=== PATIENT | male | born 1980 | race Caucasian/White ===

== ENCOUNTER → 2017-12-07 | Outpatient (CLI) | payer BC, OTHER ==
[~2017-12-07] MED LIST: CIPR-255 PO; CIPR1TAB11 PO; CLS1 PO; FLM4 PO; FLUO20CA35 PO; GLYB5TAB8 PO; IBUP-1277 PO; JNV25 PO; LISI5TAB PO; METF1000 PO; METF1TAB85 PO; OXYC-90 PO
--- NOTE | 2017-12-07 12:58 | DIAGNOSTIC IMAGING REPORT ---
CHEST 2 VIEWS ROUTINE CLINICAL HISTORY: N20.0 [id number] preoperative evaluation COMPARISON STUDY: No previous studies for comparison. FINDINGS: The bones soft tissues and hemidiaphragms are normal. The cardiomediastinal silhouette is normal. The lungs are clear. The pulmonary vasculature is normal. IMPRESSION: Negative chest. The above report was generated using voice recognition software. It may contain grammatical, syntax or spelling errors. Electronically signed by: Abhinav Rosales M.D. 12/07/2017 12:57 PM Dictated Date/Time: 12/07/2017 12:56 PM
== END | disposition home or self-care (01) ==
LOC: C.RAD 12:39
PROVIDERS: ATTEND Urology
DX: N20.0 Calculus of kidney (principal); R31.0 Gross hematuria

== ENCOUNTER → 2017-12-11 | Outpatient (CLI) | payer BC, OTHER ==
[2017-12-11 13:08] LABS: HEMOGLOBIN A1C 10.5 % (4.5-5.6)
== END | disposition home or self-care (01) ==
LOC: C.LABBFT 08:08
PROVIDERS: ATTEND Nurse Practitioner
DX: R39.9 Unspecified symptoms and signs involving the genitourinary system (principal); E11.9 Type 2 diabetes mellitus without complications

== ENCOUNTER 2017-12-25 06:31 | Day surgery (SDC) | payer BC, OTHER ==
[2017-12-11 15:25] VITALS: BMI 43.0
[~2017-12-25] VITALS: Ht 177.8 cm; Wt 135.0 kg
[~2017-12-25 06:31] MED LIST changes: -CIPR-255 PO; +CIPROFLOXACIN / D5W 400 MG IV SCH; -IBUP-1277 PO; +LACTATED RINGER'S 1000ML 1,000 ML IV SCH; -METF1000 PO; -OXYC-90 PO
[2017-12-25 06:59] VITALS: BP 140/78; PULSE 70; TEMP 37; O2SAT 96; Ht 177.8 cm; Wt 135.0 kg
[2017-12-25] MEDS ORDERED: EpHEDrine SULFATE INJ 50 MG/ML AMP IV PRN (07:00)
[2017-12-25] MEDS ORDERED: ONDANSETRON INJ 2 MG/ML 2 ML VIAL IV PRN (07:00)
[2017-12-25] MEDS ORDERED: ATROPINE SULFATE 0.1 MG/ML 5ML SYR IV PRN (07:00)
[2017-12-25] MEDS ORDERED: FENTANYL CITRATE INJ 50 MCG/1 ML 2 ML VIAL IV PRN (07:00)
--- NOTE | 2017-12-25 07:21 | History & Physical Bridge Note ---
H&P Re-Evaluation Bridge Note: I have examined the patient, reviewed the History & Physical and in the interval since the performance of the History & Physical I have noted the following changes of clinical significance: No changes noted
--- NOTE | 2017-12-25 07:25 | Discharge Instructions ---
Discharge Instructions Date of Service Dec 25, 2017. Admission Reason for Admission: Gross Hematuria, Nephrolithiasis Discharge Discharge Diagnosis / Problem: Hematuria Discharge Goals Goal(s): Decrease discomfort, Improve function Activity Recommendations Activity Limitations: resume your previous activity Lifting Limitations: gradually increase as tolerated Exercise/Sports Limitations: gradually increase as tolerated . Instructions / Follow-Up Instructions / Follow-Up May have blood in urine. May have discomfort. Call if any fevers or issues. Current Hospital Diet Patient's current hospital diet: Discharge Diet Recommended Diet: Regular Diet Procedures Procedures Performed: Cystoscopy with retrogrades. Pending Studies Studies pending at discharge: no Laboratory Results Hemoglobin A1c Test 12/11/17 08:12 Range/Units Estimated Average Glucose 255 mg/dl Hemoglobin A1c 10.5 H 4.5-5.6 % Lipid Panel Test 12/11/17 08:12 Range/Units Triglycerides Level 278 H 0-150 mg/dl Cholesterol Level 112 0-200 mg/dl HDL Cholesterol 34 mg/dl Cholesterol/HDL Ratio 3.3 LDL Cholesterol, Calculated 22 mg/dl Medical Emergencies . Who to Call and When: Medical Emergencies: If at any time you feel your situation is an emergency, please call 911 immediately. . Non-Emergent Contact Non-Emergency issues call your: Primary Care Provider, Urologist Call Non-Emergent contact if: you have a fever, temperature is above 101, temperature is above 101.5, your pain is not controlled, your pain is worsening . . "Provider Documentation" section prepared by Ry Carmona. .
[2017-12-25] MEDS ORDERED: PHEN-775 PO (07:26)
[2017-12-25] MEDS ORDERED: CEPH-571 PO (07:26)
[2017-12-25] MEDS ORDERED: OXYC7.5T65 PO (07:26)
[2017-12-25] MEDS ORDERED: OXYCODONE/ACETAMINOPHEN 7.5-325 TAB PO PRN (07:30)
[2017-12-25] MEDS ORDERED: FENTANYL CITRATE INJ 50 MCG/1 ML 2 ML VIAL ONE (07:41)
[2017-12-25] MEDS ORDERED: MIDAZOLAM HCL 1 MG/ML 2ML VIAL ONE (07:41)
[2017-12-25] MEDS ORDERED: Cysto-Conray II 17.2% 250ML BOTTLE ONE (08:03)
--- NOTE | 2017-12-25 08:34 | [facility] Operative Report ---
Operative Report Operative Date Dec 25, 2017. Pre-Operative Diagnosis Hematuria, Dysuria Post-Operative Diagnosis Same Procedure(s) Performed Cystoscopy with bilateral retrograde pyelograms Surgeon Mathew Estimated Blood Loss Minimal Findings Hypervascularity with prostate enlargement. Specimens None Drains None Anesthesia Type MAC Complication(s) none Disposition Recovery Room / PACU Indications Hematuria and dysuria with worsening symptoms. Risks and benefits discussed. Description of Procedure Patient was consented and brought back to the operating room. Patient was placed under anesthesia in the supine position and moved to the dorsal lithotomy position. Patient was prepped and draped in the regular sterile fashion. A time out was completed. A 30degree Cystoscope was placed into the bladder and the entire bladder was examined. The UO's were identified. Each ureter was cannulized with a catheter and a retrograde pyelogram was completed. No obstructions or filling defects were noted. At this point, the bladder was emptied. The scope was removed. The patient was cleaned, aroused from anesthesia, and transferred to the pacu in stable condition having tolerated the procedure well with no complications. I was present and participated in all aspects of the procedure. The patient will be monitored in the PACU until transferred. I attest to the content of the Intraoperative Record and any orders documented therein. Any exceptions are noted below.
--- NOTE | 2017-12-25 08:47 | DIAGNOSTIC IMAGING REPORT ---
RETROGRADE INCLUDES KUB CLINICAL HISTORY: 37 years-old Male presenting with B/L CYSTO. TECHNIQUE: 5 fluoroscopic image(s) recorded as part of an intraoperative procedure. COMPARISON: CT from 12/06/2017. FINDINGS/IMPRESSION: A catheter was inserted into the distal left ureter, which was opacified with contrast. The left urinary collecting system was nondilated. The right urinary collecting system was also subsequently opacified and also not dilated. Please see surgical report for further details. Dose area product (mGy.m^2): [id number]. Fluoroscopy time: 23.4 seconds. Number or time of fluoroscopic spot images: 0. Electronically signed by: Kedar Palmer M.D. 12/25/2017 8:46 AM Dictated Date/Time: 12/25/2017 8:45 AM
[2017-12-25] MEDS ORDERED: PROPOFOL IV EMULSION 10 MG/ML 20 ML VIAL ONE (08:54)
[2017-12-25] MEDS ORDERED: LIDOCAINE HCL 2% 2 ML VIAL (20MG/ML) ONE (08:54)
[2017-12-25] MEDS ORDERED: ONDANSETRON INJ 2 MG/ML 2 ML VIAL ONE (08:54)
--- NOTE | 2017-12-25 09:00 | Anesthesiology Progress Note ---
Anesthesia Post Op Note Date & Time Dec 25, 2017 at 09:00 Vital Signs Pain Intensity: 0 Vital Signs Past 12 Hours Date Time Temp Pulse Resp B/P (MAP) Pulse Ox O2 Delivery O2 Flow Rate FiO2 12/25/17 08:50 61 20 131/71 96 Room Air 12/25/17 08:43 36.0 64 16 145/78 97 Oxymask 10 12/25/17 06:59 37 70 20 140/78 (98) 96 Room Air Notes Mental Status: alert / awake / arousable, participated in evaluation Pt Amnestic to Procedure: Yes Nausea / Vomiting: adequately controlled Pain: adequately controlled Airway Patency, RR, SpO2: stable & adequate BP & HR: stable & adequate Hydration State: stable & adequate Anesthetic Complications: no major complications apparent
[2017-12-25 09:07] VITALS: BP 138/76; PULSE 63; TEMP 36.4; O2SAT 95
[2017-12-25 09:45] VITALS: BP 135/71; PULSE 64; O2SAT 94
== END 2017-12-25 10:10 | disposition home or self-care (01) ==
LOC: C.ACU 06:31
PROVIDERS: ATTEND Urology
DX: R31.9 Hematuria, unspecified (principal); N20.0 Calculus of kidney; R30.0 Dysuria; G47.33 Obstructive sleep apnea (adult) (pediatric); I10 Essential (primary) hypertension; E11.9 Type 2 diabetes mellitus without complications; Z90.49 Acquired absence of other specified parts of digestive tract